=== PATIENT | female | born 1995 | race Caucasian/White ===

== ENCOUNTER 2016-11-21 19:27 | Emergency (ER) | payer OTHER ==
[~2016-11-21] VITALS: Ht 170.2 cm; Wt 57.5 kg
[~2016-11-21 19:27] MED LIST: NITR-58 PO; PHEN-537 PO
[2016-11-21 19:29] VITALS: Ht 170.2 cm; Wt 57.5 kg
[2016-11-21] MEDS ORDERED: IBUP-1542 PO (20:33)
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
[2016-11-21] MEDS ORDERED: IBUPROFEN 600 MG TAB PO ONE (21:00)
== END 2016-11-21 21:15 | disposition home or self-care (01) ==
LOC: FTE 19:27
DX: S80.212A Abrasion, left knee, initial encounter (principal); S16.1XXA Strain of muscle, fascia and tendon at neck level, initial encounter; F17.210 Nicotine dependence, cigarettes, uncomplicated; V49.40XA Driver injured in collision with unspecified motor vehicles in traffic accident, initial encounter
CPT/HCPCS: Z7502; Z7610; 99283